=== PATIENT | male | born 1995 | race Caucasian/White ===

== ENCOUNTER 2016-11-15 14:59 | Emergency (ER) | payer BC ==
[~2016-11-15] VITALS: Ht 182.9 cm; Wt 68.4 kg
[~2016-11-15 14:59] MED LIST: AMPH30TA2 PO; AZIT500T3 PO
[2016-11-15 15:13] VITALS: BP 119/77; PULSE 80; TEMP 36.4; O2SAT 95; Ht 182.9 cm; Wt 68.4 kg
--- NOTE | 2016-11-15 16:00 | DIAGNOSTIC IMAGING REPORT ---
Right INGUINAL ULTRASOUND CLINICAL HISTORY: Right testicle pain. Possible inguinal hernia. COMPARISON STUDY: None. FINDINGS: Small fat-containing right inguinal hernia measuring 1.3 cm. No bowel identified within the hernia. No fluid collection or masses within the right groin. IMPRESSION: Small fat-containing right inguinal hernia. Electronically signed by: Roger Briceno M.D. 11/15/2016 3:58 PM Dictated Date/Time: 11/15/2016 3:57 PM
--- NOTE | 2016-11-15 16:00 | DIAGNOSTIC IMAGING REPORT ---
ULTRASOUND TESTES AND SCROTUM CLINICAL HISTORY: Right testicular pain. COMPARISON STUDY: No priors. TECHNIQUE: Real-time, grayscale, and color Doppler sonography of the testes and scrotum is performed. Images are reviewed in the transverse and longitudinal planes. FINDINGS: The testes are normal in size and homogeneous in echotexture. The right testis measures 4.0 x 1.7 x 2.5 cm and the left testis measures 4.3 x 1.8 x 2.8 cm. No intratesticular mass is seen. Testicular blood flow is normal and symmetric. Normal Doppler waveforms are identified in both testes. The epididymal heads are normal in appearance. The right epididymal head measures 0.8 cm in length and the left epididymal head measures 0.9 cm in length. No varicocele or hydrocele is seen. IMPRESSION: Unremarkable sonographic assessment of the testes and scrotum. Electronically signed by: Te Reid M.D. 11/15/2016 3:58 PM Dictated Date/Time: 11/15/2016 3:57 PM
--- NOTE | 2016-11-16 14:53 | EMERGENCY ROOM VISIT NOTE ---
History First contact with patient: 15:18 Chief Complaint: PELVIC PAIN Stated Complaint: PELVIN ISSUES History of Present Illness The patient is a 21 year old male who presents to the Emergency Room with complaints of a lump in his right groin that comes and goes over the past 2 weeks. The patient states that it is much more noticeable after intercourse. He does report some occasional right testicular irritation but not distinct pain. He has not had urethral drainage or discharge. He is in a mutually monogamous relationship with his girlfriend and does not have concern for STDs. He does report having a hernia as a child. The patient has not had fever or chills. He does not have chronic medical disease. He rates his current discomfort a 0/10. Review of Systems More than 10 systems were reviewed and otherwise negative with the exception of history of present illness. Past Medical/Surgical History Medical Problems: (1) No Known Active Medical Problems Family History No pertinent family history Social History Smoking Status: Never Smoker Alcohol Use: occasionally Marital Status: single Housing Status: lives with family, lives with roommate Occupation Status: [employer] student Current/Historical Medications Scheduled PRN Amphetamine-Dextroamphetamine 30MG (Adderall 30MG), 30 MG PO DAILY PRN for test taking Allergies Coded Allergies: No Known Allergies (Unverified , 11/15/16) Physical Exam Vital Signs Date Time Temp Pulse Resp B/P Pulse Ox O2 Delivery O2 Flow Rate FiO2 11/15/16 15:13 36.4 80 18 119/77 95 Room Air Pain Rating (0-10): 2.0 Physical Exam VITALS: Vitals are noted on the nurse's note and reviewed by myself. Vital signs stable. GENERAL: Well-developed, well-nourished, white male, who is in no acute distress and resting comfortably. Patient is cooperative with the examination. HEAD: Normocephalic atraumatic. HEART: Regular rate and rhythm without murmurs gallops or rubs. LUNGS: Clear to auscultation bilaterally without wheezes, rales or rhonchi. No retractions or accessory muscle use. ABDOMEN: Positive normal bowel sounds x 4. Soft, nontender, without masses or organomegaly. No guarding or rebound tenderness. : Normal-appearing male genitalia with circumcised phallus. No urethral drainage or discharge. No ulcerations or abrasions. Testicles are nontender and without lesion. No obvious hernia noted. MUSCULOSKELETAL: No muscle atrophy, erythema, or edema noted. Full range of motion without joint tenderness in all extremities. Medical Decision & Procedures ER Provider Diagnostic Interpretation: Right INGUINAL ULTRASOUND CLINICAL HISTORY: Right testicle pain. Possible inguinal hernia. COMPARISON STUDY: None. FINDINGS: Small fat-containing right inguinal hernia measuring 1.3 cm. No bowel identified within the hernia. No fluid collection or masses within the right groin. IMPRESSION: Small fat-containing right inguinal hernia. ULTRASOUND TESTES AND SCROTUM CLINICAL HISTORY: Right testicular pain. COMPARISON STUDY: No priors. TECHNIQUE: Real-time, grayscale, and color Doppler sonography of the testes and scrotum is performed. Images are reviewed in the transverse and longitudinal planes. FINDINGS: The testes are normal in size and homogeneous in echotexture. The right testis measures 4.0 x 1.7 x 2.5 cm and the left testis measures 4.3 x 1.8 x 2.8 cm. No intratesticular mass is seen. Testicular blood flow is normal and symmetric. Normal Doppler waveforms are identified in both testes. The epididymal heads are normal in appearance. The right epididymal head measures 0.8 cm in length and the left epididymal head measures 0.9 cm in length. No varicocele or hydrocele is seen. IMPRESSION: Unremarkable sonographic assessment of the testes and scrotum. ED Course Physical exam and history were performed. Nursing notes and EMR were reviewed. Patient appears to have intermittent pain and tenderness in his right groin with associated mass that also comes and goes. The patient does not have obvious testicular tenderness on exam. There is no grossly palpable hernia. There is no redness in the area. Because of this ultrasound of the testicle and inguinal canal were performed. Ultrasound of the testicle was without significant findings. The ultrasound of the groin does show a 1.3 cm fat- containing hernia. Clinically this is consistent with the patient's symptoms, and I do suspect a sliding hernia. I discussed this at length with the patient and will give him information for outpatient general surgical care. The patient was invited back to the ER anytime and he rated his discomfort a 0/10 at the time of departure. The chart was completed utilizing [employer] Voice Recognition Software. Grammatical errors, random word insertions, pronoun errors, and incomplete sentences are an occasional consequence of this system due to software limitations, ambient noise, and hardware issues. Any formal questions or concerns about the content, text, or information contained within the body of this dictation should be directly addressed to the provider for clarification. . Medical Decision Differential diagnosis: Etiologies such as torsion, mass, infection, hernia, hydrocele, epididymitis, trauma, intra-abdominal process, as well as others were entertained. Impression Primary Impression: Right inguinal hernia Departure Information Dispostion Home / Self-Care Condition GOOD Referrals Denis Peraza M.D. Forms HOME CARE DOCUMENTATION FORM, IMPORTANT VISIT INFORMATION Patient Instructions [facility] Additional Instructions You were seen and evaluated today on an emergency basis only. This is not a substitute for, or an effort to provide, complete comprehensive medical care. It is not possible to recognize and treat all injuries or illnesses in a single emergency department visit. For this reason it is recommended that you followup with a general surgeon for ongoing care and evaluation. We have provided contact information for Dr. Peraza as a courtesy. You are welcome to return to the emergency department anytime with new, worsening, or concerning symptoms.
== END 2016-11-15 16:31 | disposition home or self-care (01) ==
LOC: C.EDB 15:00 → C.EDD 16:31
DX: K40.90 Unilateral inguinal hernia, without obstruction or gangrene, not specified as recurrent (principal)

== ENCOUNTER → 2017-04-23 | Outpatient (CLI) | payer BC ==
[~2017-04-23] MED LIST changes: -AZIT500T3 PO
== END | disposition home or self-care (01) ==
LOC: C.PATHSPEC 13:12
PROVIDERS: ATTEND Ophthalmology
DX: D18.01 Hemangioma of skin and subcutaneous tissue (principal); H02.822 Cysts of right lower eyelid; L72.0 Epidermal cyst